=== PATIENT | female | born 1940 | race African-American/Black ===

== ENCOUNTER 2023-01-31 16:20 | Outpatient (CLI) | payer BC, SELFPAY | END 2023-01-31 16:21 | disposition home or self-care (01) | LOC: NFLDREF 02-01 07:31 | PROVIDERS: PCP Family Medicine; Referring Provider Family Medicine; Visit Provider Family Medicine | DX: Z00.00 Encounter for general adult medical examination without abnormal findings (principal); I10 Essential (primary) hypertension; E78.5 Hyperlipidemia, unspecified; G62.9 Polyneuropathy, unspecified; K21.9 Gastro-esophageal reflux disease without esophagitis; H61.20 Impacted cerumen, unspecified ear | CPT/HCPCS: 80053; 80061 ==

== ENCOUNTER 2024-04-04 10:03 | Outpatient (CLI) | payer BC, SELFPAY ==
--- OUTSIDE RECORDS SUMMARY | 2024-04-04 13:52 | XMS_ITS | Clinical Summary ---
Author Organization [facility] Address [place], [place] [address] Care Team Providers Care Visual Manager Name Role Phone Pcp, No Primary Care Provider Unavailabl e Allergies Active Allergy Reactions Criticality Noted Date Comments Lisinopril Cough 08/07/2017 Medications Medication Sig Dispensed Refills Start Date End Date Status ibuprofen (ADVIL; MOTRIN) 200 mg tabletIndications:My algia Take 2 tablets by mouth every 6 hours if needed for Pain. 60 tablet 12/11/2017 Active acetaminophen (TYLENOL EXTRA STRGTH) 500 mg tabletIndications:Ba ck pain without radiation Take 2 tablets by mouth every 8 hours if needed. Max acetaminophen dose: 4000mg in 24 hrs. 100 tablet 01/17/2018 Active omeprazole (PRILOSEC) 20 mg Delayed-Release capsule Take 20 mg by mouth once daily before a meal. 3 01/06/2019 Active aspirin (ECOTRIN) 81 mg enteric coated tabletIndications:Hy perlipidemia, unspecified hyperlipidemia type TAKE ONE TABLET BY MOUTH ONCE DAILY WITH A MEAL 90 tablet 3 09/08/2019 Active hydroCHLOROthiazide (HCTZ) 25 mg tabletIndications:Hy pertension, unspecified type TAKE ONE TABLET BY MOUTH ONCE DAILY (DOSE INCREASE 6-19) 90 tablet 09/30/2019 Active amLODIPine (NORVASC) 5 mg tabletIndications:Hy pertension, unspecified type Take 1 tablet by mouth once daily. 90 tablet 3 03/12/2020 Active atorvastatin (LIPITOR) 20 mg tabletIndications:Hy perlipidemia, unspecified hyperlipidemia type Take 1 tablet by mouth at bedtime. 90 tablet 3 03/12/2020 Active gabapentin (NEURONTIN) 100 mg capsuleIndications:P eripheral sensory neuropathy Take 1 capsule by mouth at bedtime. 90 capsule 3 03/12/2020 Active losartan (COZAAR) 50 mg tabletIndications:Hy pertension, unspecified type Take 1 tablet by mouth once daily. 90 tablet 3 03/12/2020 Active Blood Pressure MonitorIndications:H ypertension, unspecified type Check blood pressure once daily and record readings 1 Device 03/12/2020 Active Active Problems Problem Noted Date Diagnosed Date Hx of compression fracture of spine 01/18/2018 Overview: Old Thoracic vertebral compression fracture on xray fall 2016 Hyperlipidemia 07/03/2017 Overview: 10 year ASCVD risk of 16.19% AHA 2013 Pooled Cohort Guidelines for ASCVD Risk Reduction Started atorvastatin 20 mg 07/03/2017 Red eyes 07/03/2017 Chronic constipation 06/05/2017 Numbness of foot 06/05/2017 HTN (hypertension) 01/10/2017 Resolved Problems Problem Noted Date Diagnosed Date Resolved Date Chronic cough 08/07/2017 08/07/2017 Overview: Reported negative TB test in [facility] 10/2016 - sputum, results not available to [place] Sputum PCR for TB negative x 08 April 2017 ADDENDUM: Discussed case with Dr. Jackson, ID. TB sputum PCR is pretty sensitive, but culture is more sensitive. If cough continues and other explanation is not found, could consider sputum culture for TB x 3. Resolved after discontinuation of lisinopril 06/2017 Immunizations Name Administration Dates Next Due Influenza, Inactivated IIV3 (Age 65+ Years) Preserv Free 06/05/2017 Pneumococcal Poly,23-Valent (Pneumovax) 08/07/19 18 Pneumococcal conj 13-Valent (Prevnar 13) 019 Tdap 01/17/2019 Typhoid (injectable) 06/12/2023 Social History Tobacco Use Types Packs/Day Years Used Date Smoking Tobacco: Never Smokeless Tobacco: Never Tobacco Cessation:Counseling Given: Yes Alcohol Use Standard Drinks/Week Comments No 0 (1 standard drink = 0.6 oz pur e alcohol) PHQ-2 Answer Date Recorded PHQ-2 TOTAL SCORE 0 03/12/2020 Social Connections Answer Date Recorded Frequency of Communication with Friends and Fami ly Not on file 2021 Financial Resource Strain Answer Date R ecorded Difficulty of Paying Living Expenses Not on file 2021 Difficulty of Paying Living Expenses Not on file 2021 Sex and Gender Information Value Date Recorded Sex Assigned at Not on file Gender Identity Not on file Sexual Orientation Not on file Obstetrics History Para Term AB IAB SAB Ectopic Multiple Livin g Live Births 7 7 7 5 7 Date Outcome GA Total Labor Labor/2nd/3rd Weight Sex Type Anes PTL Connie A1 A5 Name Clin Term Term Term Term Term Term Term Last Filed Vital Signs Vital Sign Reading Time Taken Comments Blood Pressure 127/77 03/12/2020 11:00 AM CDT Pulse 68 03/12/2020 10:58 AM CDT Temperature 37 ??C (98.6 ??F) 03/12/2020 10:58 AM CDT Respiratory Rate 20 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 Oxygen Saturation 94% 03/12/2020 10:58 AM CDT Inhaled Oxygen Concentration - - Weight 66 kg (145 lb 9.6 oz) 03/12/2020 10:58 AM CDT Height 169.4 cm (5' 6.69) 01/17/2019 3:29 PM CD T Body Mass Index 23.01 01/17/2019 3:29 PM CDT Plan of Treatment Health Maintenance Due Date Last Done Comments Zoster (shingles) series for age 50+ (1 of 2) 1988 DEXA/DXA scan for age 65+ 2003 BMI (ht and wt on same day) for age 18+ 01/18/2020 01/17/2019, 12/02/2018, 08/30/2018, Additional history exists Depression screening for age 12+ 03/15/2021 03/15/2020, 03/12/2020, 08/30/2018, Additional history exists COVID-19 vaccine series ( season) 2023 06/05/2023, 08/11/2021, 10/02/2020, Additional history exists Influenza for age 65+ 04/06/2024 06/05/2017 Tetanus booster 01/17/2029 01/17/2019 Pneumococcal series for age 65+ Completed 9, 08/07/2017 Tdap Completed 01/17/2019 Care Teams Visual Manager Relationship Specialty Start Date End Date Pcp, No . PCP - General 07/14/18
== END 2024-04-04 10:04 | disposition home or self-care (01) ==
LOC: NFLDREF 13:50
PROVIDERS: PCP Family Medicine; Referring Provider Family Medicine; Visit Provider Family Medicine
DX: E78.5 Hyperlipidemia, unspecified (principal)
CPT/HCPCS: 80053; 80061

== ENCOUNTER 2024-07-02 13:53 | Outpatient (CLI) | payer BC, SELFPAY ==
--- OUTSIDE RECORDS SUMMARY | 2024-07-02 13:55 | XMS_ITS | Clinical Summary ---
Author Organization [email or web address] [facility] Address [place], [place] [address] Care Team Providers Care Slip Operator Name Role Phone Pcp, No Primary Care [...] TABLET BY MOUTH ONCE DAILY (DOSE INCREASE 6) 90 tablet 09/30/2019 Active amLODIPine (NORVASC) 5 [...] Hx of compression fracture of spine 01/18/2018 Overview (01/18/2018): Old Thoracic vertebral compression fracture on xray fall 2016 Hyperlipidemia 07/03/2017 Overview (08/07/2017): 10 year ASCVD risk of 16.19% AHA 2013 Pooled Cohort Guidelines for ASCVD Risk Reduction Started atorvastatin 20 mg 07/03/2017 Red eyes 07/03/2017 Chronic constipation 06/05/2017 Numbness of foot 06/05/2017 HTN (hypertension) 01/10/2017 Resolved Problems Problem Noted Date Diagnosed Date Resolved Date Chronic cough 08/07/2017 08/07/2017 Overview (08/07/2017): Reported negative [facility] test in [facility] 10/2016 - sputum, results not available to me Sputum PCR for TB negative x 08 [...] 68 03/12/2020 10:58 AM CDT Temperature 37 C (98.6 F) 03/12/2020 10:58 AM CDT Respiratory Rate 20 07/16/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 Oxygen Saturation 94% 03/12/2020 10:58 AM CDT Inhaled Oxygen Concentration - - Weight 66 kg (145 lb 9.6 oz) 03/12/2020 10:58 AM CDT Height 169.4 cm (5' 6.69) 01/17/2019 3:29 PM CD T Body Mass Index 23.01 01/17/2019 3:29 PM CDT Plan of Treatment Upcoming Encounters Date Type Department Care Team (Late st Contact Info) Description 07/02/2024 2:00 PM BALL FRINGE MACHINE OPERATOR Ancillary Procedure [facility] [address] [place] [address] Health Maintenance Due Date Last Done Comments Zoster (shingles) series for age 50+ (1 of 2) 1988 DEXA/DXA scan for age 65+ 2003 RSV vaccine for adults or (1 - 1-dose 75+ series) 2013 BMI (ht and wt on same day) for age 18+ 01/18/2020 01/17/2019, 12/02/2018, 08/30/2018, Additional history exists Depression screening for age 12+ 03/15/2021 03/15/2020, 03/12/2020, 08/30/2018, Additional history exists COVID-19 vaccine series ( season) 2024 06/05/2023, 08/11/2021, 10/02/2020, Additional history exists Influenza for age 65+ 04/06/2024 06/05/2017 Tetanus booster 01/17/2029 01/17/2019 Pneumococcal series for age 65+ Completed 9, 08/07/2017 Tdap Completed 01/17/2019 Care Teams Slip Operator Relationship Specialty Start Date End Date Pcp, No . PCP - General 07/14/18
[2024-07-02 14:21] LABS: Creatinine* 0.7 mg/dL (0.5-1.5); Estimated Glomerular Filt Rate 85 ml/min
--- NOTE | 2024-07-02 15:00 | CRLHL7_ITS ---
For Patients: As a result of the Century Cures Act, medical imaging exams and procedure reports are released immediately into your electronic medical record. You may view this report before your referring provider. If you have questions, please contact your health care provider. Indication: CHRONIC COUGH Technique: CT Chest 75CC ISOVUE [address] Please note that all CT scans at this facility use dose modulation, iterative reconstruction, and/or weight-based dosing when appropriate to reduce radiation dose to as low as reasonably achievable. Comparison: Chest x-ray 03/11/2024 Findings: Emphysema noted. Fibrosis noted in the right lower lobe with bronchiectasis. Additional fibrotic changes in both lung apices with extensive bronchiectasis in the right lung apex. Associated volume loss noted, most prominent in the right upper lobe. Findings are similar to prior chest x-ray dated 03/16/2020. The airways are clear without endobronchial lesion. Distention of the esophagus noted without air-fluid level. No suspicious thyroid nodule. No adenopathy. Upper abdomen unremarkable. Chronic wedge compression deformity in the midthoracic spine. Incidental bone island within T1. Impression: Chronic fibrotic changes in both lung apices, right greater than left, with associated volume loss. Mild pulmonary fibrosis also within the right lower lobe. Underlying emphysema. Please note that all CT scans at this facility use dose modulation, iterative reconstruction, and/or weight-based dosing when appropriate to reduce radiation dose to as low as reasonably achievable. Dictated by Keyur Barcenas MD @ 07/04/2024 9:59:18 AM (Electronically Signed)
== END 2024-07-02 13:54 | disposition home or self-care (01) ==
LOC: RAD 13:54
PROVIDERS: PCP Family Medicine; Visit Provider Family Medicine
DX: R05.3 Chronic cough (principal); J84.10 Pulmonary fibrosis, unspecified
CPT/HCPCS: 36415; 71260; 82565; 93306; Q9967